=== PATIENT | male | born 1960 | race Caucasian/White ===

== ENCOUNTER → 2020-07-17 | Outpatient (CLI) | payer OTHER ==
--- NOTE | 2020-07-17 12:44 | KCIC ---
EXAMINATION: MRI RIGHT WRIST WITHOUT IV CONTRAST CLINICAL HISTORY: Right wrist pain both medially and laterally, trauma playing [employer]. TECHNIQUE: Multiplanar multisequential images obtained through the wrist without intravenous contrast. COMPARISON: None FINDINGS: TRIANGULAR FIBROCARTILAGE: Degenerative changes without discrete tear. SCAPHOLUNATE LIGAMENT: Attenuation of the dorsal band compatible with chronic/remote injury. Lack of joint fluid limits evaluation. LUNOTRIQUETRAL LIGAMENT: Intact. Lack of joint fluid limits evaluation. FLEXOR TENDONS/CARPAL TUNNEL: Within normal limits. EXTENSOR TENDONS: Within normal limits. BONES/MARROW: Cystic changes in the distal radius at the distal radioulnar joint and radial-scaphoid joint as well as scattered throughout the carpals most noticeably in the proximal pole of the scaphoid at the scapholunate joint and at the lunate-capitate joint, likely degenerative. No acute fracture or suspicious marrow replacing lesion. JOINT FLUID: No significant joint effusion or synovitis. OTHER: Mild soft tissue edema along the dorsal wrist. IMPRESSION: Moderate degenerative changes as described. Electronically signed by: Lance Ayala DO (07/17/2020 12:42 PM) [id number]
== END ==
LOC: KCIC MRI 09:25
PROVIDERS: ATTEND Family Medicine
DX: M19.031 Primary osteoarthritis, right wrist (principal); M25.431 Effusion, right wrist
CPT/HCPCS: 73221